=== PATIENT | female | born 1970 | race Two or more races ===

== ENCOUNTER 2018-01-19 05:35 | Inpatient (IN) | payer MEDICAID ==
[2018-01-17 13:47] LABS: BASOPHILS % (AUTO) 0.4 % (0-1); EOSINOPHILS # (AUTO) 0.4 X10'3 (0-0.9); LYMPHOCYTES % (AUTO) 26.3 % (21-51); MEAN CORPUSCULAR HEMOGLOBIN 30.4 PG (27.0-31.0); MEAN CORPUSCULAR HGB CONC 34.6 % (33.0-36.5); MEAN CORPUSCULAR VOLUME 87.9 FL (78-98); MEAN PLATELET VOLUME 8.2 FL (7.4-10.4); MONOCYTES # (AUTO) 0.4 X10'3 (0-0.9); MONOCYTES % (AUTO) 5.4 % (2-12); NEUTROPHILS # (AUTO) 4.7 X10'3 (1.8-7.7); NEUTROPHILS % (AUTO) 62.9 % (42-75); PRE OP HEMATOCRIT 38.8 % (35.0-45.0); PRE OP HEMOGLOBIN 13.4 g/dL (12.0-16.0); PRE OP PLATELET COUNT 216 X10'3 (140-440); RED BLOOD COUNT 4.41 X10'6 (4.20-5.60)
[2018-01-17 13:58] LABS: PRE OP PROTIME 10.3 SECONDS (9.0-12.0)
[2018-01-17 14:03] LABS: CLARITY,URINE CLEAR (Clear); COLOR,URINE YELLOW (Yellow); GLUCOSE, URINE NEGATIVE (Neg); KETONES,URINE NEGATIVE (Neg); LEUKOCYTE ESTERASE ,URINE NEGATIVE (Neg); NITRITES, URINE NEGATIVE (Neg); OCCULT BLOOD,URINE NEGATIVE (Neg); PROTEIN,URINE NEGATIVE (Neg); UROBILINOGEN,URINE 0.2 E.U/dL (0.2-1.0)
[2018-01-17 14:05] LABS: UA COLLECTION TYPE CLN CATCH MIDSTREAM
[2018-01-17 14:16] LABS: HEMOGLOBIN A1C 5.2 % (4.5-6.2)
[2018-01-17 14:19] LABS: ALBUMIN 3.3 G/DL (3.4-5.0); ALBUMIN/GLOBULIN RATIO 0.9 (1.1-1.5); ALKALINE PHOSPHATASE 64 IU/L (46-116); BLOOD UREA NITROGEN 10 MG/DL (7-18); BUN/CREATININE RATIO 16.1 (6.6-38.0); CALCIUM 8.4 MG/DL (8.5-10.1); CHLORIDE 106 MMOL/L (99-107); CREATININE 0.62 MG/DL (0.40-0.90); PRE OP ALT 27 U/L (30-65); PRE OP ANION GAP 8 (8-16); PRE OP AST 17 U/L (10-37); PRE OP BILIRUB, TOTAL 0.4 MG/DL (0.0-1.0); PRE OP GLUCOSE 82 MG/DL (70-104); PRE OP POTASSIUM 3.4 MMOL/L (3.4-5.1); PRE OP SODIUM 141 MMOL/L (135-145); TOTAL CARBON DIOXIDE 26.7 MMOL/L (24-32); TOTAL PROTEIN 6.8 G/DL (6.4-8.2); eGFR > 90 ML/MIN
[2018-01-17 14:40] LABS: ABG HCO3 25.3 mmol/L (22.0-26.0); ABG OXYGEN SATURATION 96.3 % (95-98); ABG PCO2 (T) 39.3 mmHg (32.0-45.0); ABG PH (T) 7.427 (7.350-7.450); ABG PO2 (T) 84.4 mmHg (83-108); ALLEN'S TEST Positive; FCOHb 0.7 % (0.5-1.5); FO2Hb 95.6 % (94-100)
[~2018-01-19] VITALS: Ht 154.9 cm; Wt 81.5 kg
[2018-01-19] VITALS (28 sets, daily range): BP systolic 91–141; BP diastolic 49–83
[~2018-01-19 05:35] MED LIST: FERR325T32 PO; LEVO50TA8 PO; OMEP20TA5 PO; PANT-47 PO; ceFAZolin inj. 2,000 MG in normal saline 100ml IV soln 100 ML IV ONE; famotidine 20mg tablet PO ONE; iohexol 300mg/ml 100ml inj. ONE; ringers solution, lacted 1,000 ML IV SCH
[2018-01-19] MEDS ORDERED: epiNEPHrine 1 mg/ml inj ONE (06:01)
[2018-01-19] MEDS ORDERED: LIDOcaine 1% 30ml preserv. free vial ONE (06:01)
[2018-01-19] MEDS ORDERED: ROPIVAcaine 0.5% (5mg/ml) 30ml vial ONE (06:01)
[2018-01-19] MEDS: mupirocin 2% nasal ointment 1gm UD NS SCH ×3 (06:04→20:32)
[2018-01-19] MEDS ORDERED: nitroGLYCERIN in D5W 50mg/250ml (Tridil) infusion IV ONE (07:15)
[2018-01-19] MEDS ORDERED: sevoflurane 250ml liquid IH ONE (07:15)
[2018-01-19] MEDS ORDERED: ondansetron/PF 4mg/2ml inj ONE (07:15)
[2018-01-19] MEDS ORDERED: propofol inj 20 ML IV ONE (07:19)
[2018-01-19] MEDS ORDERED: LIDOcaine 2% (20mg/ml) 5ml vial ONE (07:19)
[2018-01-19] MEDS ORDERED: MIDAZolam 5mg/5ml vial ONE (07:19)
[2018-01-19] MEDS ORDERED: fentaNYL /PF 50mcg/ml 5ml ampule ONE (07:19)
[2018-01-19] MEDS ORDERED: heparin 10,000 units/1 ML INJ ONE (07:19)
[2018-01-19] MEDS ORDERED: rocuronium 10mg/ml inj IV ONE (07:58)
[2018-01-19] MEDS ORDERED: dexamethasone sod phosphate 4mg/ml inj. ONE (09:24)
[2018-01-19] MEDS ORDERED: ketorolac trometh. 30mg/ml inj. ONE (09:39)
[2018-01-19] MEDS ORDERED: albuterol 2.5 MG/3 ML nebule NEB PRN (09:50)
[2018-01-19] MEDS ORDERED: metoclopramide 5 mg/ml inj IV PRN (09:50)
[2018-01-19] MEDS ORDERED: magnesium hydroxide 30ml (MOM) UD suspension PO PRN (09:50)
[2018-01-19] MEDS ORDERED: morphine 4 MG/ML inj SYRINge IV PRN ×3 (09:50→10:40)
[2018-01-19] MEDS ORDERED: meperidine/PF 25mg/ml syringe ONE (10:32)
[2018-01-19] MEDS ORDERED: ringers solution, lacted 1,000 ML IV SCH (10:36)
[2018-01-19] MEDS ORDERED: meperidine/PF 25mg/ml syringe IV PRN ×3 (10:40)
[2018-01-19] MEDS ORDERED: proCHLORperazine 10 MG/2 ml inj IV PRN (10:40)
[2018-01-19] MEDS ORDERED: ondansetron/PF 4mg/2ml inj IV PRN (10:40)
[2018-01-19 10:46] LABS: BASOPHILS % (AUTO) 0.1 % (0-1); EOSINOPHILS # (AUTO) 0.3 X10'3 (0-0.9); EOSINOPHILS % (AUTO) 2.6 % (0-6); HEMATOCRIT 35.1 % (35.0-45.0); LYMPHOCYTES # (AUTO) 2.2 X10'3 (1.1-4.8); LYMPHOCYTES % (AUTO) 17.4 % (21-51); MEAN CORPUSCULAR HEMOGLOBIN 30.2 PG (27.0-31.0); MEAN CORPUSCULAR HGB CONC 34.3 % (33.0-36.5); MEAN PLATELET VOLUME 8.3 FL (7.4-10.4); MONOCYTES # (AUTO) 0.4 X10'3 (0-0.9); NEUTROPHILS # (AUTO) 9.5 X10'3 (1.8-7.7); NEUTROPHILS % (AUTO) 76.9 % (42-75); PLATELET COUNT 203 X10'3 (140-440); RED BLOOD COUNT 3.99 X10'6 (4.20-5.60); RED CELL DISTRIBUTION WIDTH 14.7 % (11.5-14.5); WHITE BLOOD COUNT 12.4 X10'3 (4.5-11.0)
[2018-01-19 10:55] LABS: ALBUMIN 2.8 G/DL (3.4-5.0); ANION GAP 11 (8-16); BLOOD UREA NITROGEN 8 MG/DL (7-18); BUN/CREATININE RATIO 11.6 (6.6-38.0); CALCIUM 7.8 MG/DL (8.5-10.1); CHLORIDE 108 MMOL/L (99-107); CREATININE 0.69 MG/DL (0.40-0.90); GLUCOSE 153 MG/DL (70-104); SODIUM 142 MMOL/L (135-145); TOTAL CARBON DIOXIDE 23.2 MMOL/L (24-32); eGFR > 90 ML/MIN
[2018-01-19] MEDS ORDERED: potassium Cl 40MEQ/250ML bag 250 ML IV PRN (11:10)
[2018-01-19] MEDS ORDERED: potassium Cl 20 mEq SR tablet PO PRN (11:10)
[2018-01-19] MEDS: potassium Cl 40MEQ/250ML bag 250 ML IV PRN ×2 (11:22→14:24)
[2018-01-19] MEDS: morphine 4 MG/ML inj SYRINge IV PRN ×3 (11:57→18:29)
[2018-01-19] MEDS: HYDROcodone/acetaminophen 10/325mg tab PO PRN ×2 (12:56→21:48)
[2018-01-19] MEDS: ketorolac tromethamine 15mg/ml inj. IV SCH ×2 (14:24→20:32)
[2018-01-19] MEDS: ceFAZolin inj. 1,000 MG in dextrose 5%-water 50ml 50 ML IV SCH (16:09)
[2018-01-19] MEDS: ondansetron/PF 4mg/2ml inj IV PRN (16:10)
[2018-01-19] MEDS: docusate sod 100mg capsule PO SCH (20:32)
[2018-01-19] MEDS: enoxaparin 30mg/0.3ml syringe SUBCUT SCH (20:32)
[2018-01-20] MEDS: ceFAZolin inj. 1,000 MG in dextrose 5%-water 50ml 50 ML IV SCH (00:29)
[2018-01-20] MEDS: ketorolac tromethamine 15mg/ml inj. IV SCH ×2 (02:23→07:37)
[2018-01-20 03:00] VITALS: BP 106/50
[2018-01-20 03:04] LABS: BASOPHILS % (AUTO) 0 % (0-1); EOSINOPHILS % (AUTO) 0 % (0-6); HEMATOCRIT 35.2 % (35.0-45.0); HEMOGLOBIN 11.8 g/dl (12.0-16.0); LYMPHOCYTES # (AUTO) 1.1 X10'3 (1.1-4.8); LYMPHOCYTES % (AUTO) 7.5 % (21-51); MEAN CORPUSCULAR HEMOGLOBIN 29.9 PG (27.0-31.0); MEAN CORPUSCULAR HGB CONC 33.7 % (33.0-36.5); MEAN CORPUSCULAR VOLUME 88.9 FL (78-98); MEAN PLATELET VOLUME 8.6 FL (7.4-10.4); MONOCYTES # (AUTO) 0.8 X10'3 (0-0.9); MONOCYTES % (AUTO) 5.6 % (2-12); NEUTROPHILS # (AUTO) 12.2 X10'3 (1.8-7.7); NEUTROPHILS % (AUTO) 86.9 % (42-75); PLATELET COUNT 211 X10'3 (140-440); RED BLOOD COUNT 3.95 X10'6 (4.20-5.60); RED CELL DISTRIBUTION WIDTH 14.1 % (11.5-14.5); WHITE BLOOD COUNT 14.1 X10'3 (4.5-11.0)
[2018-01-20 03:06] LABS: ALBUMIN 2.8 G/DL (3.4-5.0); ANION GAP 10 (8-16); BLOOD UREA NITROGEN 10 MG/DL (7-18); CALCIUM 7.4 MG/DL (8.5-10.1); CHLORIDE 105 MMOL/L (99-107); CREATININE 0.77 MG/DL (0.40-0.90); GLUCOSE 133 MG/DL (70-104); POTASSIUM 3.7 MMOL/L (3.5-5.1); SODIUM 139 MMOL/L (135-145); TOTAL CARBON DIOXIDE 24.3 MMOL/L (24-32); eGFR 80 ML/MIN
[2018-01-20 06:00] VITALS: BP 95/50
[2018-01-20] MEDS: mupirocin 2% nasal ointment 1gm UD NS SCH ×2 (07:32→20:33)
[2018-01-20] MEDS: pantoprazole 40mg Tablet.DR PO SCH (07:36)
[2018-01-20] MEDS: ferrous sulfate 325mg tablet PO SCH (07:36)
[2018-01-20] MEDS: levoTHYROXINE 25mcg tablet PO SCH (07:36)
[2018-01-20] MEDS: docusate sod 100mg capsule PO SCH ×2 (07:36→20:32)
[2018-01-20] MEDS: enoxaparin 30mg/0.3ml syringe SUBCUT SCH ×2 (07:38→20:33)
[2018-01-20] MEDS ORDERED: non-formulary drug (Omeprazole 2 TAB) PO SCH (08:00)
[2018-01-20 11:00] VITALS: BP 96/50
[2018-01-20] MEDS: HYDROcodone/acetaminophen 10/325mg tab PO PRN ×2 (12:21→20:35)
[2018-01-20 15:00] VITALS: BP 102/57
[2018-01-20] MEDS: ondansetron/PF 4mg/2ml inj IV PRN (15:52)
[2018-01-20 19:00] VITALS: BP 103/56
[2018-01-20 23:00] VITALS: BP_SYST 115; BP_SYST 95; BP_DIAS 45; BP_DIAS 71
[2018-01-21 03:00] VITALS: BP 94/53
[2018-01-21] MEDS: HYDROcodone/acetaminophen 10/325mg tab PO PRN ×3 (04:35→19:39)
[2018-01-21 05:18] LABS: BASOPHILS % (AUTO) 0.2 % (0-1); EOSINOPHILS # (AUTO) 0.2 X10'3 (0-0.9); EOSINOPHILS % (AUTO) 2.7 % (0-6); HEMATOCRIT 34.4 % (35.0-45.0); HEMOGLOBIN 11.7 g/dl (12.0-16.0); LYMPHOCYTES # (AUTO) 1.8 X10'3 (1.1-4.8); MEAN CORPUSCULAR HEMOGLOBIN 30.1 PG (27.0-31.0); MEAN CORPUSCULAR VOLUME 88.4 FL (78-98); MEAN PLATELET VOLUME 8.1 FL (7.4-10.4); MONOCYTES # (AUTO) 0.4 X10'3 (0-0.9); MONOCYTES % (AUTO) 4.7 % (2-12); NEUTROPHILS # (AUTO) 6.5 X10'3 (1.8-7.7); NEUTROPHILS % (AUTO) 72.4 % (42-75); PLATELET COUNT 181 X10'3 (140-440); RED BLOOD COUNT 3.89 X10'6 (4.20-5.60); RED CELL DISTRIBUTION WIDTH 15.3 % (11.5-14.5)
[2018-01-21 06:00] VITALS: BP 108/67
[2018-01-21] MEDS: levoTHYROXINE 25mcg tablet PO SCH (07:28)
[2018-01-21] MEDS: ondansetron/PF 4mg/2ml inj IV PRN (07:31)
[2018-01-21] MEDS: mupirocin 2% nasal ointment 1gm UD NS SCH (08:00)
[2018-01-21] MEDS: docusate sod 100mg capsule PO SCH ×2 (08:43→19:38)
[2018-01-21] MEDS: ferrous sulfate 325mg tablet PO SCH (08:43)
[2018-01-21] MEDS: enoxaparin 30mg/0.3ml syringe SUBCUT SCH (08:43)
[2018-01-21] MEDS: pantoprazole 40mg Tablet.DR PO SCH (08:43)
[2018-01-21] MEDS ORDERED: magnesium citrate 296ml oral solution PO ONE (09:05)
[2018-01-21 10:01] LABS: ALBUMIN 2.7 G/DL (3.4-5.0); ANION GAP 5 (8-16); BLOOD UREA NITROGEN 10 MG/DL (7-18); BUN/CREATININE RATIO 14.9 (6.6-38.0); CALCIUM 7.9 MG/DL (8.5-10.1); CHLORIDE 105 MMOL/L (99-107); CREATININE 0.67 MG/DL (0.40-0.90); GLUCOSE 106 MG/DL (70-104); POTASSIUM 3.3 MMOL/L (3.5-5.1); SODIUM 140 MMOL/L (135-145); TOTAL CARBON DIOXIDE 30.2 MMOL/L (24-32); eGFR > 90 ML/MIN
[2018-01-21 11:00] VITALS: BP 115/61
[2018-01-21 15:00] VITALS: BP 104/57
[2018-01-21 19:00] VITALS: BP 108/65
[2018-01-21] MEDS: potassium Cl 20 mEq SR tablet PO PRN (21:35)
[2018-01-21 23:00] VITALS: BP 105/54
[2018-01-22] MEDS: potassium Cl 20 mEq SR tablet PO PRN (01:56)
[2018-01-22 03:00] VITALS: BP 105/58
[2018-01-22 05:31] LABS: BASOPHILS % (AUTO) 0.3 % (0-1); EOSINOPHILS # (AUTO) 0.4 X10'3 (0-0.9); EOSINOPHILS % (AUTO) 5.3 % (0-6); HEMATOCRIT 34.9 % (35.0-45.0); HEMOGLOBIN 11.8 g/dl (12.0-16.0); LYMPHOCYTES # (AUTO) 1.9 X10'3 (1.1-4.8); MEAN CORPUSCULAR HEMOGLOBIN 30.1 PG (27.0-31.0); MEAN CORPUSCULAR HGB CONC 33.9 % (33.0-36.5); MEAN CORPUSCULAR VOLUME 88.9 FL (78-98); MEAN PLATELET VOLUME 8.1 FL (7.4-10.4); MONOCYTES # (AUTO) 0.5 X10'3 (0-0.9); MONOCYTES % (AUTO) 5.9 % (2-12); NEUTROPHILS # (AUTO) 4.9 X10'3 (1.8-7.7); NEUTROPHILS % (AUTO) 63.5 % (42-75); PLATELET COUNT 187 X10'3 (140-440); RED BLOOD COUNT 3.93 X10'6 (4.20-5.60); RED CELL DISTRIBUTION WIDTH 15.1 % (11.5-14.5); WHITE BLOOD COUNT 7.6 X10'3 (4.5-11.0)
[2018-01-22 05:38] LABS: ALBUMIN 2.6 G/DL (3.4-5.0); ANION GAP 7 (8-16); BLOOD UREA NITROGEN 8 MG/DL (7-18); BUN/CREATININE RATIO 10.5 (6.6-38.0); CALCIUM 8.2 MG/DL (8.5-10.1); CHLORIDE 105 MMOL/L (99-107); CREATININE 0.76 MG/DL (0.40-0.90); GLUCOSE 94 MG/DL (70-104); POTASSIUM 3.5 MMOL/L (3.5-5.1); SODIUM 142 MMOL/L (135-145); TOTAL CARBON DIOXIDE 29.7 MMOL/L (24-32); eGFR 81 ML/MIN
[2018-01-22 07:00] VITALS: BP 108/69
[2018-01-22] MEDS: levoTHYROXINE 25mcg tablet PO SCH (07:08)
[2018-01-22] MEDS: HYDROcodone/acetaminophen 10/325mg tab PO PRN (07:08)
[2018-01-22] MEDS: pantoprazole 40mg Tablet.DR PO SCH (07:08)
[2018-01-22] MEDS: ferrous sulfate 325mg tablet PO SCH (07:08)
[2018-01-22] MEDS: docusate sod 100mg capsule PO SCH (07:08)
[2018-01-22] MEDS ORDERED: HYDR-3972 PO (10:26)
[2018-01-22] MEDS ORDERED: COL100C PO (10:26)
== END 2018-01-22 11:35 | disposition home or self-care (01) | DRG 121 ==
LOC: PAS IN 05:35 → EDSTATUS 07:30 → PCU 3S 14:17
PROVIDERS: ADMIT Thoracic Surgery (Cardiothoracic Vascular Surgery); ATTEND Thoracic Surgery (Cardiothoracic Vascular Surgery)
PROC: 0P800ZZ Division of Sternum, Open Approach (ICD-10-PCS; 2018-01-19)
PROC: 07TM0ZZ Resection of Thymus, Open Approach (ICD-10-PCS; principal; 2018-01-19 07:15)
DX: J98.59 Other diseases of mediastinum, not elsewhere classified (principal); J98.4 Other disorders of lung; M41.20 Other idiopathic scoliosis, site unspecified; D64.9 Anemia, unspecified; D15.0 Benign neoplasm of thymus; E03.9 Hypothyroidism, unspecified; K21.9 Gastro-esophageal reflux disease without esophagitis; G43.909 Migraine, unspecified, not intractable, without status migrainosus; Z86.718 Personal history of other venous thrombosis and embolism; Z90.49 Acquired absence of other specified parts of digestive tract; Z87.891 Personal history of nicotine dependence
CPT/HCPCS: 36415; 36600; 71045; 71046; 80048; 80053; 81003; 82803; 82948; 83036; 84132; 84443; 85018; 85025; 85610; 85730; 86885; 86900; 86901; 86920; 87070; 93005; 94010; 97116; 97161; 97530; A6213; A6255; A6257; A6449; A7000; A7048; J0171; J0690; J1100; J1644; J1650; J1885; J2001; J2175; J2250; J2270; J2405; J2704; J2795; J3010; J3480; J3490; J7030; J7060; J7120; Q9967

== ENCOUNTER 2019-03-25 11:27 | Emergency (ER) | payer MEDICAID ==
[~2019-03-25] VITALS: Ht 157.5 cm; Wt 84.1 kg
[~2019-03-25 11:27] MED LIST changes: +COL100C PO; +HYDR-3972 PO; -ceFAZolin inj. 2,000 MG in normal saline 100ml IV soln 100 ML IV ONE; -famotidine 20mg tablet PO ONE; -iohexol 300mg/ml 100ml inj. ONE; -ringers solution, lacted 1,000 ML IV SCH
[2019-03-25] MEDS ORDERED: ondansetron/PF 4mg/2ml inj IV ONE (12:50)
[2019-03-25] MEDS ORDERED: normal saline 1000ML IV soln IVB ONE (12:50)
[2019-03-25 12:58] LABS: URINE HCG NEGATIVE (NEG)
[2019-03-25 12:59] LABS: BASOPHILS % (AUTO) 0.5 % (0-1); EOSINOPHILS # (AUTO) 0.3 X10'3 (0-0.9); EOSINOPHILS % (AUTO) 3.6 % (0-6); HEMATOCRIT 34.2 % (35.0-45.0); LYMPHOCYTES # (AUTO) 1.5 X10'3 (1.1-4.8); LYMPHOCYTES % (AUTO) 20.6 % (21-51); MEAN CORPUSCULAR HEMOGLOBIN 24.6 PG (27.0-31.0); MEAN CORPUSCULAR HGB CONC 32.3 g/dL (33.0-36.5); MEAN PLATELET VOLUME 8.2 FL (7.4-10.4); MONOCYTES # (AUTO) 0.5 X10'3 (0-0.9); MONOCYTES % (AUTO) 6.2 % (2-12); NEUTROPHILS # (AUTO) 5.1 X10'3 (1.8-7.7); NEUTROPHILS % (AUTO) 69.1 % (42-75); PLATELET COUNT 277 X10'3 (140-440); RED BLOOD COUNT 4.49 X10'6 (4.20-5.60); RED CELL DISTRIBUTION WIDTH 17.4 % (11.5-14.5); WHITE BLOOD COUNT 7.4 X10'3 (4.5-11.0)
[2019-03-25] MEDS: morphine 4 MG/ML inj SYRINge IV PRN ×2 (13:05→14:08)
[2019-03-25 13:08] LABS: CLARITY,URINE CLEAR (Clear); COLOR,URINE YELLOW (Yellow); GLUCOSE, URINE NEGATIVE (Neg); KETONES,URINE NEGATIVE (Neg); LEUKOCYTE ESTERASE ,URINE NEGATIVE (Neg); NITRITES, URINE NEGATIVE (Neg); OCCULT BLOOD,URINE NEGATIVE (Neg); PH,URINE 5.5 (4.8-8.0); PROTEIN,URINE NEGATIVE (Neg); UROBILINOGEN,URINE 0.2 E.U/dL (0.2-1.0)
[2019-03-25 13:11] LABS: UA COLLECTION TYPE CLN CATCH MIDSTREAM
[2019-03-25 13:26] LABS: ALANINE AMINOTRANSFERASE 37 U/L (12-78); ALBUMIN 3.3 G/DL (3.4-5.0); ALBUMIN/GLOBULIN RATIO 0.9 (1.1-1.5); ALKALINE PHOSPHATASE 67 IU/L (46-116); ANION GAP 8 (8-16); ASPARTATE AMINO TRANSFERASE 18 U/L (10-37); BILIRUBIN,TOTAL 0.3 MG/DL (0.1-1.0); BLOOD UREA NITROGEN 11 MG/DL (7-18); BUN/CREATININE RATIO 14.5 (6.6-38.0); CALCIUM 8.5 MG/DL (8.5-10.1); CHLORIDE 105 MMOL/L (99-107); CREATININE 0.76 MG/DL (0.40-0.90); GLUCOSE 97 MG/DL (70-104); POTASSIUM 4.1 MMOL/L (3.5-5.1); SODIUM 141 MMOL/L (135-145); TOTAL CARBON DIOXIDE 28.2 MMOL/L (24-32); eGFR 81 ML/MIN
[2019-03-25] MEDS ORDERED: TRAM50TA2 PO (13:39)
[2019-03-25] MEDS ORDERED: ketorolac trometh. 30mg/ml inj. IV ONE (13:40)
[2019-03-25 14:08] VITALS: BP 98/51
== END 2019-03-25 14:10 | disposition home or self-care (01) ==
LOC: ER 11:27
DX: K40.90 Unilateral inguinal hernia, without obstruction or gangrene, not specified as recurrent (principal); Z86.718 Personal history of other venous thrombosis and embolism; Z90.49 Acquired absence of other specified parts of digestive tract; Z98.890 Other specified postprocedural states; Z79.899 Other long term (current) drug therapy
CPT/HCPCS: 36415; 74176; 80053; 81003; 81025; 85025; 85610; 96374; 96375; 96376; 99284; J1885; J2270; J2405; J7030